=== PATIENT | male | born 1950 | race Caucasian/White ===

== ENCOUNTER 2016-12-15 11:31 | Emergency (ER) | payer MEDICARE, BC ==
[2016-12-15] MEDS ORDERED: Triamcinolone Acetonide 40 MG/ML 1 ML MDV INJECT ONE (12:41)
[2016-12-15] MEDS ORDERED: Acetaminophen/HYDROcodone 325-10 MG Tab PO ONE (12:42)
[2016-12-15 13:23] LABS: CHLORIDE,CL 104 mmol/L (98-107); SODIUM,NA 140 mmol/L (136-145)
[2016-12-15 13:30] VITALS: BP 150/96
--- NOTE | 2016-12-18 08:24 | ER ---
Date of Service: 12/15/2016 SUBJECTIVE: The patient presents to the emergency room with complaints of left knee pain. The patient states that he began experiencing this discomfort approximately 2 days ago. He states that he was on a fishing trip this past week. He states that he is not experiencing any fever or chills. He states that his left knee is warm to touch, but denies any erythema to the joints. The patient states that he does have a history of gout and previously has been on indomethacin for this. He states that he did take some indomethacin yesterday and today which was of minimal help with the discomfort. PAST MEDICAL HISTORY: Gout. MEDICATIONS: Indomethacin. ALLERGIES: NKDA. REVIEW OF SYSTEMS: General: No fever or chills. HEENT: No sore throat, rhinorrhea, or congestion. Respiratory: No shortness of breath. Cardiac: Denies any substernal chest pain. No jaw, arm, neck, or back pain. GI: No nausea, vomiting, or diarrhea. No melena, hematochezia, or hematemesis. : Denies any dysuria. Musculoskeletal: Please see history of present illness. Again complains of severe left knee pain. PHYSICAL EXAMINATION: General: This is a 66-year-old male patient, who is in no acute distress. Vital Signs: Blood pressure is 150/96, pulse rate is 70, temperature is 36.1, respiratory rate 16, O2 saturations 97%. Skin: Warm, pink, and dry. Lungs: Clear to auscultation. Heart: Regular rate and rhythm. Musculoskeletal: He does have some warmth to the left knee. No erythema noted. His range of motion is within normal limits. There is no crepitus or deformity noted. His patella is not ballotable. Remainder of his neurovascular, circulation, sensation, and motor function are all within normal limits in distal portion of the left lower extremity. LABORATORY DATA: WBC is 7.3, hemoglobin is 14.6, platelets are 218. Chemistry, sodium is 140, potassium is 4.1, chloride is 104, bicarb is 29, BUN is 13, creatinine is 0.9. GFR is greater than 60. Glucose is 104. Uric acid is 7.7. Calcium is 8.6, corrected calcium is 8.84, total bilirubin is 0.5. AST is 19, ALT is 33, alkaline phosphatase is 82, CRP is 1.8, total protein is 7.5, albumin is 3.7. Plain film x-rays of the patient's left knee were obtained. He did have evidence of some mild osteoarthritic changes in the medial compartment, but no significant fracture dislocation or acute pathology was noted. EMERGENCY ROOM COURSE: The patient was given [place] 10/325 one tablet here in the emergency room. He was also given Kenalog 80 mg in the emergency room as well. He remained stable in my care in the emergency room. He was not given any NSAIDs at this time due to the fact that he had taken indomethacin shortly before coming to the ER. ASSESSMENT: Acute left knee pain and hyperuricemia, likely secondary to gout. PLAN: The patient was started on prednisone 40 mg once daily for 6 days. I did give him a short course of [place] 5/325 with instructions to take 1 to 2 every 4- 6 hours as needed for pain. Drink plenty of fluids. Minimize consumption of food consisting large amounts of purine such as meats, particularly organ meats, certain cheeses, alcohol. He was given a handout with information on foods to avoid and foods to consume to help with the symptoms. I advised him to use either the indomethacin or ibuprofen in addition to the oral steroids to help decrease the inflammation. Once the inflammation is acutely controlled, he should follow up in the clinic to get started on allopurinol. All questions were answered. LUISK: 12/15/2016 14:32:58 MODL: 12/15/2016 21:22:47 /[id number]
== END 2016-12-15 14:37 | disposition home or self-care (01) ==
LOC: VM.ED 11:31
DX: E79.0 Hyperuricemia without signs of inflammatory arthritis and tophaceous disease (principal); M25.562 Pain in left knee
CPT/HCPCS: 36415; 73562; 80053; 84550; 85025; 86140; 96372; 99283; A9270; J3301

== ENCOUNTER 2024-04-13 14:57 | Emergency (ER) | payer MEDICARE, BC ==
[2024-04-13] MEDS: Naproxen 500 MG Tab PO ONE (15:45)
[2024-04-13 19:56] VITALS: BP 134/90; PULSE 100
== END 2024-04-13 15:50 | disposition home or self-care (01) ==
LOC: VM.ED 14:57
DX: M10.042 Idiopathic gout, left hand (principal)
CPT/HCPCS: 99283; A9270-GY